=== PATIENT | female | born 1945 | race Caucasian/White ===

== ENCOUNTER 2016-06-25 22:48 | Emergency (ER) | payer OTHER, MEDICARE ==
[~2016-06-25] VITALS: Ht 160 cm; Wt 59.0 kg
--- NOTE | 2016-06-25 22:51 | ED GI/GU/ABDOMINAL COMPLAINT ---
History of Present Illness General Chief Complaint: Abdominal Pain/Flank Pain Stated Complaint: BIBA ABD PAIN Source: patient Exam Limitations: no limitations Vital Signs & Intake/Output Vital Signs & Intake/Output F Allergies Coded Allergies: No Known Drug Allergies (06/25/16) Triage Nurses Notes Reviewed? yes ? N Is pt currently ? No Onset: Abrupt Duration: better, gone now Timing: single episode today Quality/Severity: sharpness, severe, stabbing Severity Numbers: 10 Location: epigastric Radiation: no radiation Activities at Onset: eating Prior Abdominal Problems: none HPI: Patient is a 70-year-old female with an unremarkable past medical history presents to emergency room stating that 90 minutes prior to arrival patient was in her normal state of health 8 a lean cuisine meal for dinner and then 30 minutes later patient had acute onset of sharp stabbing severe 10 out of 10 nonradiating epigastric burning pain. Patient states that pain persisted for approximately one hour she called EMS prior to EMS arrival patient had one episode of loose watery diarrhea production symptoms had improved immediately after however in route via ambulance patient states that her symptoms completely resolved. Currently patient does not have any abdominal pain and denies fever chills chest pain arm pain jaw pain nausea vomiting dysuria hematuria vaginal bleeding vaginal discharge. Patient did not take any medications prior to arrival. Patient is an every day smoker and has never received colonoscopy. Denies any significant alcohol use or NSAID use (DAYLIN ZAVALA) Reconcile Medications No Known Home Medications (MODESTA CASTRO,MARY Suazo) Past History Travel History Traveled to [place] past 21 day No Medical History Any Pertinent Medical History? none Surgical History Surgical History: hysterectomy, tubal ligation Family History Hx Contributory? No (DAYLIN ZAVALA) Review of Systems Review of Systems Constitutional: Reports: no symptoms. EENTM: Reports: no symptoms. Respiratory: Reports: no symptoms. Cardiovascular: Reports: no symptoms. GI: Reports: see HPI, abdominal pain. Genitourinary: Reports: no symptoms. Musculoskeletal: Reports: no symptoms. Skin: Reports: no symptoms. Neurological/Psychological: Reports: no symptoms. Hematologic/Endocrine: Reports: no symptoms. Immunologic/Allergic: Reports: no symptoms. All Other Systems: Reviewed and Negative (DAYLIN ZAVALA) Physical Exam Physical Exam General Appearance: no apparent distress, alert, comfortable Gastrointestinal: normal bowel sounds, soft, non-tender Comments: Well-developed well-nourished person in no acute distress HEENT: Normal EENT exam, Neck: Supple, no lymphadenopathy, normal range of motion without pain or tenderness Back: Nontender, no CVA tenderness. Cardiovascular: Regular rate and rhythms no murmurs rubs or gallops, normal JVP Respiratory: Chest nontender. No respiratory distress.breath sounds clear to auscultation bilaterally Abdomen: Soft, nontender nondistended, no appreciable organomegaly. Normal bowel sounds. No ascites Extremity: No edema, no calf tenderness to palpation, normal and equal pulses. Neuro: Alert oriented x3, motor sensory normal, Skin: No appreciable rash on exposed skin, skin is warm and dry. Psych: Mood and affect is normal, memory and judgment is normal. Core Measures ACS in differential dx? No Severe Sepsis Present: No Septic Shock Present: No (DAYLIN ZAVALA) Progress Differential Diagnosis: AAA, AMI, appendicitis, biliary colic, bowel obstruction , colon cancer, cholecystitis, diverticulitis, endometritis, esophageal varices, gastritis, hepatitis, hernia, hemorrhoids, ischemic bowel, inflamm bowel dis, kidney stone, Lianna-Fifi tear, ovarian cyst, ovarian torsion, pancreatitis, PID/cervicitis, peptic ulcer, PUD/GERD, perforated viscous, SBO, threatened AB, UTI/pyelo Plan of Care: Laboratory Tests 06/25/16 2258: Lipase Cancelled, CBC w Diff Cancelled, WBC Cancelled, RBC Cancelled, Hgb Cancelled, Hct Cancelled, MCV Cancelled, MCH Cancelled, RDW Cancelled, Plt Count Cancelled, MPV Cancelled, PUBS MCHC Cancelled, Urine Color Cancelled, Urine Clarity Cancelled, Urine pH Cancelled, Ur Specific [place] Cancelled, Urine Protein Cancelled, Urine Ketones Cancelled, Urine Nitrite Cancelled, Urine Bilirubin Cancelled, Urine Urobilinogen Cancelled, Ur Leukocyte Esterase Cancelled, Ur Microscopic Cancelled, Urine Hemoglobin Cancelled, Urine Glucose Cancelled Patient currently is in no apparent distress and is asymptomatic and no abdominal pain is noted 0541 06/25/16- patient had requested to leave prior to evaluation of blood work and further treatment. Patient was strongly advised to obtain blood work however she wanted to leave AGAINST MEDICAL ADVICE patient was discussed the risks of this and was aware. Patient signed AMA form and was given primary care doctor for referral. (DAYLIN ZAVALA) Initial ED EKG: none (DAYLIN ZAVALA) Departure Departure Disposition: LEFT AGAINST MEDICAL ADVICE Condition: Stable Clinical Impression Primary Impression: Abdominal pain Additional Instructions: As discussed your leaving AGAINST MEDICAL ADVICE please call the list of primary care doctors provided to the emergency room to establish a doctor on Monday. If symptoms worsen return to emergency room Departure Forms: Customer Survey General Discharge Information (DAYLIN ZAVALA) Departure Prescriptions: Current Visit Scripts No Known Home Medications PA/TAKE OUT WAITER/WAITRESS Co-Sign Statement Statement: ED Attending supervision documentation- [X] I saw and evaluated the patient. I have also reviewed all the pertinent lab results and diagnostic results. I agree with the findings and the plan of care as documented in the PA's/TAKE OUT WAITER/WAITRESS's documentation. [X] I have reviewed the ED Record and agree with the PA's/TAKE OUT WAITER/WAITRESS's documentation. [] Additions or exceptions (if any) to the PAs/TAKE OUT WAITER/WAITRESS's note and plan are summarized below: [] (MODESTA CASTRO,MARY Suazo)
[2016-06-26] VITALS: BP 146/86
== END 2016-06-26 00:13 | disposition left against medical advice (07) ==
LOC: ERH 22:48
DX: R10.13 Epigastric pain (principal)

== ENCOUNTER 2016-07-25 15:06 | Emergency (ER) | payer OTHER, MEDICARE ==
[~2016-07-25] VITALS: Ht 160 cm; Wt 59.0 kg
--- NOTE | 2016-07-25 15:17 | ED GENERAL ADULT ---
History of Present Illness General Chief Complaint: Psychiatric Related Complaint Stated Complaint: BIBA FOR +SI Source: patient Exam Limitations: no limitations Allergies Coded Allergies: No Known Drug Allergies (06/25/16) Reconcile Medications No Known Home Medications Triage Nurses Notes Reviewed? yes Onset: Abrupt Duration: hour(s): Timing: recent history HPI: 07/25/16 3:33 PM This is a 62-year-old female who is brought into the emergency department by ambulance for apparently expressing suicidal ideation. The patient states that this was a misunderstanding and that he did get upset but that her son mistakenly thought that she would hurt herself. She says she has no intention of self injury and denies any suicidal ideation. She says she does smoke but does not drink. She denies any complaints in the ED. The onset of the symptoms were abrupt, but she was just today, the severity was significant as her symptoms required her to come to the emergency department for care. The patient was held for crisis evaluation, to obtain collateral information from the son, and reevaluate the patient for additional history. (LEMUEL POLLOCK DO) Vital Signs & Intake/Output Vital Signs & Intake/Output Vital Signs Date Time Temp Pulse Resp B/P Pulse O2 O2 Flow FiO2 Ox Delivery Rate 07/26 2055 96.8 73 18 149/89 96 Room Air 07/25 1519 96.4 104 19 148/94 97 Room Air Past History Travel History Traveled to [facility] past 21 day No Medical History Any Pertinent Medical History? 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 No (LEMUEL POLLOCK DO) Review of Systems Review of Systems Constitutional: Denies: fever. EENTM: Reports: no symptoms. Respiratory: Denies: short of breath. Cardiovascular: Denies: chest pain. GI: Denies: abdominal pain. Genitourinary: Reports: no symptoms. Musculoskeletal: Reports: no symptoms. Skin: Reports: no symptoms. Neurological/Psychological: Reports: no symptoms. Hematologic/Endocrine: Reports: no symptoms. (LEMUEL POLLOCK DO) Physical Exam Physical Exam General Appearance: alert, awake, anxious, mild distress Head: atraumatic, normal appearance Eyes: Bilateral: normal appearance, PERRL, EOMI. Ears, Nose, Throat: normal pharynx, normal ENT inspection Neck: normal inspection, supple Respiratory: normal breath sounds, chest non-tender, no respiratory distress Cardiovascular: regular rate/rhythm Peripheral Pulses: 4+ radial (R), 4+ radial (L) Gastrointestinal: non-tender Back: normal range of motion Extremities: normal inspection, normal range of motion, no edema Neurologic/Psych: no motor/sensory deficits, awake, alert, oriented x 3 Skin: intact, normal color, warm/dry Core Measures ACS in differential dx? No CVA/TIA Diagnosis: No Severe Sepsis Present: No Septic Shock Present: No (LEMUEL POLLOCK DO) Progress Differential Diagnoses I considered the following diagnoses in my evaluation of the patient: [ Depression, anxiety, adjustment disorder, suicidal ideation] Initial ED EKG: none (LEMUEL POLLOCK DO) Plan of Care: Orders Procedure Date/time Status Continuous Observation Monitor 07/25 1914 Active ED CRISIS PSYCH CONSULT 07/25 1914 Active URINE DRUG SCREEN FOR ER ONLY 07/25 1532 Complete Laboratory Tests 07/25/16 1615: Urine Opiates Screen < 100.00, Methadone Screen < 40, Barbiturate Screen < 60, Ur Phencyclidine Scrn < 6.00, Amphetamines Screen 142, U Benzodiazepines Scrn < 85, Urine Cocaine Screen < 50, Urine Cannabis Screen < 5.00 Comments: Patient has been seen and evaluated by the crisis clinic. Collateral information has been obtained via the son. Patient is stable for discharge. (MODESTA CASTRO,MARY Suazo) Departure Departure Condition: Stable Clinical Impression Primary Impression: Adjustment disorder Referrals: PATIENT HAS NO PRIMARY CARE DR (PCP/Family) Departure Forms: Customer Survey General Discharge Information Prescriptions: Current Visit Scripts No Known Home Medications Comments 07/25/16 The patient was mildly agitated when she first was brought in. She was able to be verbally de-escalated. She did consent to changing into a gown, providing a urine sample and to participate breathalyzer sampling. Crisis consultation was requested. The son was not immediately available for additional information at the time of the initial interview. 07/25/16 8 pm Patient was signed out to Dr Corona at 8 pm (LEMUEL POLLOCK DO) Departure Disposition: HOME OR SELF CARE (MODESTA CASTRO,MARY Suazo) Critical Care Note Critical Care Note Critical Care Time: 30-74 min (LEMUEL POLLOCK DO)
--- NOTE | 2016-07-25 20:45 | ED PSYCH CRISIS CONSULTATION ---
Crisis Consult Basic Assessment Date of Consult: 07/25/16 Responsible Person/Accompanied By: VINCENT Insurance Authorization: Insurance #1: Insurance name: MEDICARE A Phone number: Policy number: [id number] Group number: Authorization number: ED Provider: Patient's ED Provider: LEMUEL POLLOCK DO Primary Care Physician: Patient's PCP: PATIENT HAS NO PRIMARY CARE DR PCP's Phone Number: Current Psychiatrist: None Chief Complaint: Psychiatric Related Complaint Patient's Quote: "It was a misunderstanding." Present Illness: The patient is a 70 year old single, female presenting to the ED via ambulance, after her son Jai called them with concerns. The patient presented alert, oriented, with euthymic mood. 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 She states that it did upset her and that her son made a comment about a helicopter flying over the shop today. She states that she noticed a difference in her breathing and that her son must have gotten worried. She notes that the ambulance arrived and brought her here. She adamantly denies that she made any suicidal statements and states that she would never do that. She states "I'm not a depressed person, I love my life, I love my shop." She denies any current or history of substance abuse or mental health issues. She denies any current or history of SI / HI / AH / VH. She states that she does not have any stressors, besides the recent raid. When asked about what she looks forward to she states, " I love my shop and I'm 70 and I don't want to quit working." In addition to going to work she states that she loves to spend time with her 3 grandchildren, who are 7, 13 and 20 years old. She denies any history of trauma or abuse. She states that she would like to go home and go to work tomorrow. GILLIAN met with the patients son, Jai Banks ([phone]), who was present with the patient. Jai notes that his mother said, "this is killing me," and because it was over the phone, he was concerned. He notes that after speaking with her in person, he realizes that it was a misunderstanding. He states that he never thought that she would kill herself but states, "they are killing her. " He goes on to say that the shock of having her shop raided, was very stressful and he does not like to see her stressed out. He confirms that there are no lingering legal issues and that they were allowed to return to regular business. He states that he does not believe his mother is a danger to herself or others and he would like to take her home. He states that he lives with her and that they work together and that he will be watching her. Jai notes that if anything changes or he has any additional concerns that he will call 911. Patient's Address: [address] [place] [address] Other Phone Number: Who Do You Live With? Son Family/Informants Interviewed: Clark Banks-[phone] Allergies - Coded Allergies: No Known Drug Allergies (06/25/16) Current Medications - No Known Home Medications Laboratory Results: Laboratory Tests 07/25/16 1615: Urine Opiates Screen < 100.00, Methadone Screen < 40, Barbiturate Screen < 60, Ur Phencyclidine Scrn < 6.00, Amphetamines Screen 142, U Benzodiazepines Scrn < 85, Urine Cocaine Screen < 50, Urine Cannabis Screen < 5.00 (ADELA TRAN LCSW) Past History Past Medical History Neurological: NONE EENT: NONE Cardiovascular: NONE Respiratory: NONE Gastrointestinal: NONE Hepatic: NONE Renal: NONE Musculoskeletal: osteoarthritis Psychiatric: NONE Endocrine: NONE Blood Disorders: NONE Cancer(s): NONE 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 Physical Limitations (Interventions): None noted Psychiatric Treatment History Psych Treatment Psychiatric Treatment No (Pt. denies) Inpatient Treatment No Outpatient Treatment No Location of Treatment N/A Reason for Treatment N/A Dates of Treatment N/A Response to Treatment N/A Diagnosis by History: N/A Substance Use/Abuse History Drug Use/Abuse Substances Used/Abused No First Use N/A Last Used N/A How much used/taken N/A How often N/A For how long N/A Route of use N/A Substance Abuse Treatment Substance Abuse Treatment Past Substance Abuse [place] No Inpatient Treatment No Outpatient Treatment No Location of Treatment N/A Reason for Treatment N/A Dates of Treatment N/A Response to Treatment N/A Comments: N/A (ADELA TRAN LCSW) Current Mental Status Mental Status Orientation: Person, Place, Situation Affect: WNL Speech: WNL Neuro-vegetative: WNL Appearance Appearance- Dress/Hygiene: The patient was sitting on the bed in hospital attire, neat clean and well kempt. She had good eye contact and participation in the evaluation. Behaviors Thought Process: WNL Thought Content: WNL Memory: WNL Insight: WNL SI/HI Risk Assessment Past Suicidal Ideation/Attempts No Current Suicidal Ideation/Att No Past Homicidal Ideation/Att: No Current Homicidal Ideation/Attempts No Degree of Intent: None Danger To: N/A Gravely Disabled: N/A Risk Factors: age (under 24/over 65) Lethality Ratin PTSD Checklist PTSD Done? patient declined (Pt. denies trauma history) ED Management Sitter: Yes Restraints: No (ADELA TRAN LCSW) DSM5/PS Stressors/Medical Prob Diagnosis' (DSM 5, Stressors, Medical): Z60.9 Unspecified Problem Related to Social Enviornment Current GAF: 75 Comments: N/A (ADELA TRAN LCSW) Departure Disposition Psych Medical Clearance Date: 07/25/16 Medically Cleared at: 1915 Time Started: 1999 Time Ended: 2044 Psychiatrist Consulted: Dr. Shell Date Disposition Established: 07/25/16 Time Disposition Established: 2044 Plan for Disposition - Modality: Discharge home with counseling referrals Facility: Patient to Arrange Contact: N/A Telephone: N/A Rationale for Disposition: The patient was brought to the ED, after her son had concerns about her. The patient is alert, oriented with euthymic mood and is future focused. She denies any SI / HI / AH / VH / depression / anxiety. She states that she was upset over something that happened at her Pawn shop on Monday, noting that it was raided by the police. She notes that they did not find anything wrong and they were allowed to return to normal business. The patient is futured focused and is looking forward to going to work tomorrow and spending time with grandchildren. Her only son, Jai was present and after speaking with her in person, he is no longer concerned. He states that it was a misunderstanding and he found her to be stressed out after the police raid. He does not find her to be a risk to herself or others. He states that he never thought she would kill herself. He lives with her and they work together. He will be home with her tonight and at work with her tomororw. He states that if anything changes or his concerns come back that he will call 911. Case discussed with Dr. Shell and he does not find the patient to be an acute risk to self or others and will recommend discharge home with list of counseling referrals. Additional Instructions: N/A Referrals PATIENT HAS NO PRIMARY CARE DR (PCP/Family) (CHELSEA MORLEY,ADELA)
[2016-07-25 20:56] VITALS: BP 149/89
== END 2016-07-25 21:18 ==
LOC: ERH 15:06
DX: F43.20 Adjustment disorder, unspecified (principal)
CPT/HCPCS: 80307; G0463